=== PATIENT | female | born 1990 | race Two or more races ===

== ENCOUNTER 2020-11-12 11:23 | Emergency (ER) | payer MEDICAID ==
[~2020-11-12] VITALS: Ht 160 cm; Wt 67.1 kg
[2020-11-12] MEDS ORDERED: ALBUTEROL SULF8.5 G1 INH (12:10)
--- NOTE | 2020-11-12 12:10 | Emergency Room Report ---
History of Present Illness General Chief Complaint: Chest Pain Source: Patient Present Illness HPI 30-year-old female, no past medical history no surgical history presents with 4 days of cough, congestion, body aches, subjective shortness of breath no chest pain, ongoing for the past 4 days patient reports that her friend came over to visit her and was sick. She denies any aggravating or alleviating factors severity is moderate, constant patient presents for evaluation and treatment COVID-19 Screening Contact w/high risk pt: No Experienced COVID-19 symptoms?: Yes COVID-19 Testing performed PASTRY ASSISTANT: No Patient History Social History: Reports: smoking Last Menstrual Period: 11/10/20 Now: No Reviewed Nursing Documentation: PMH: Agreed; PSxH: Agreed Nursing Documentation-PMH Past Medical History: No Stated History Review of Systems All Other Systems: negative except mentioned in HPI Physical Exam Vital Signs Date Time Temp Pulse Resp B/P (MAP) Pulse Ox O2 Delivery O2 Flow Rate FiO2 11/12/20 11:44 98.1 100 18 114/76 (89) 99 Room Air Sp02 EP Interpretation: reviewed, normal General Appearance: well appearing, no apparent distress, alert Head: normocephalic, atraumatic Eyes: bilateral eye PERRL, bilateral eye EOMI ENT: uvula midline, moist mucus membranes, nasal congestion Neck: supple, thyroid normal, supple/symm/no masses Respiratory: lungs clear, no respiratory distress, no retraction, no accessory muscle use Cardiovascular #1: normal peripheral pulses, regular rate, rhythm, no edema, no gallop, no murmur Gastrointestinal: non tender, soft, no guarding, no rebound Musculoskeletal: normal inspection Neurologic: alert, oriented x3 Psychiatric: mood/affect normal Skin: no rash, warm/dry Medical Decision Making Diagnostic Impression: Primary Impression: COVID-19 ER Course 30-year-old female presents with most likely COVID-19, patient with an upper respiratory infection, patient counseled to stop smoking, isolation precautions were discussed patient will be provided albuterol inhaler disposition home with return precautions patient also encouraged to buy a pulse oximeter Last Vital Signs Date Time Temp Pulse Resp B/P (MAP) Pulse Ox O2 Delivery O2 Flow Rate FiO2 11/12/20 11:44 98.1 100 18 114/76 (89) 99 Room Air Disposition: HOME, SELF-CARE Condition: Stable Scripts Albuterol Sulfate* (Albuterol Sulfate Hfa*) 8.5 Gm Hfa.aer.ad 2 PUFF INH Q4H PRN for Shortness of Breath, #1 INH Prov: Bayron Pascual MD 11/12/20 Referrals: [facility] Patient Instructions: Upper Respiratory Infection, Adult, [id number] Additional Instructions: The patient was provided with discharge instructions, notified to follow-up with a primary care doctor and or specialist in the next 24-48 hours, and to return to the ED if they have worsening of their symptoms. Please note that this report is being documented using DRAGON technology. This can lead to erroneous entry secondary to incorrect interpretation by the dictating instrument. Bayron Pascual MD Nov 12, 2020 12:10
--- NOTE | 2020-11-12 12:23 | NUR ---
ED Nurse Note: covid sent. pt refused test. pt educated regarding smoking cessation & COVID isolation precautions. pt on monitor. vitals stable.
--- NOTE | 2020-11-12 12:31 | NUR ---
ER DISCHARGE NOTE: Patient is cleared to be discharged per ERMD, pt is aox4, on room air, with stable vital signs. pt was given dc and prescription instructions, pt was able to verbalize understanding, pt id band removed. pt is able to ambulate with steady gait. pt took all belongings. pt verbalizes smoking cessation education & COVID isolation precautions.
[2020-11-12 12:32] VITALS: BP 98/72
== END 2020-11-12 12:33 | disposition home or self-care (01) ==
LOC: EMR 12:14
DX: U07.1 COVID-19 (principal); F17.200 Nicotine dependence, unspecified, uncomplicated
CPT/HCPCS: U0004; Z7502; 99283